=== PATIENT | female | born 1940 | race Caucasian/White ===

== ENCOUNTER 2016-12-23 01:24 | Emergency (ER) | payer OTHER ==
[~2016-12-23] VITALS: Ht 157.5 cm; Wt 90.0 kg
[~2016-12-23 01:24] MED LIST: ACET325T14 PO; ACID1TAB7 PO; ASCO1TAB2 PO; ASPI-496 PO; ASPI-621 PO; ATOR20TA9 PO; CALC1TAB PO; CARV3.122 PO; CLOT15CR6 TP; FERR324T18 PO; GARL5000 PO; HYDR-3237 PO; HYDR25TA6 PO; LEVO125T5 PO; LISI40TA PO; LISI5TAB7 PO; LOPE2CAP PO; LORA10TA3 PO; MELA1CAP9 PO; METF500T9 PO; METH750T2 PO; MULT-230 PO; MULT-717 PO; OMEP20TA62 PO; ONDA4TAB10 PO; SPIR25TA PO; SULI150T PO; UBID1CAP52 PO; VITA400C43 PO
[2016-12-23 01:27] VITALS: BP 143/93
[2016-12-23] MEDS ORDERED: OMEP20TA62 PO (02:16)
== END 2016-12-23 03:06 | disposition home or self-care (01) ==
LOC: ED 02:10
DX: G89.11 Acute pain due to trauma (principal); M25.462 Effusion, left knee; M25.562 Pain in left knee; W01.0XXA Fall on same level from slipping, tripping and stumbling without subsequent striking against object, initial encounter; Y93.89 Activity, other specified; Y92.009 Unspecified place in unspecified non-institutional (private) residence as the place of occurrence of the external cause; Y99.9 Unspecified external cause status
CPT/HCPCS: 99284

== ENCOUNTER → 2018-01-10 | Outpatient (CLI) | payer OTHER | END | disposition home or self-care (01) | LOC: CFH 12:21 | PROVIDERS: ATTEND Internal Medicine Cardiovascular Disease | DX: I10 Essential (primary) hypertension (principal); E11.9 Type 2 diabetes mellitus without complications; E78.5 Hyperlipidemia, unspecified; Z87.891 Personal history of nicotine dependence | CPT/HCPCS: 93306 ==